=== PATIENT | female | born 1950 | race Two or more races ===

== ENCOUNTER 2023-02-13 11:24 | Inpatient (IN) | payer OTHER ==
[~2023-02-13] VITALS: Ht 162.6 cm; Wt 65.3 kg
[2023-02-14] MEDS ORDERED: SYNTHROID125 MCG PO (10:25)
[2023-02-14] MEDS ORDERED: LOSARTAN POTAS100 MG PO (10:26)
[2023-02-14] MEDS ORDERED: METFORMIN HCL750 MG PO (10:27)
[2023-02-14] MEDS ORDERED: ALENDRONATE SOD70 MG PO (10:27)
[2023-02-14] MEDS ORDERED: SIMVASTATIN10 MG PO (10:27)
[2023-02-14] MEDS ORDERED: ALDACTONE25 MG PO (10:27)
[2023-02-14] MEDS ORDERED: D3 + K2 DOTS 11 EACH PO (10:28)
[2023-02-20] MEDS ORDERED: B-122500 MCG (08:19)
[2023-02-20] MEDS ORDERED: VITAMIN D31250 MCG (08:20)
[2023-02-20] MEDS ORDERED: CALCIUM CARBON600 M1 (08:20)
[2023-02-20] MEDS ORDERED: TORSEMIDE5 MG (08:20)
[2023-02-20] MEDS ORDERED: FELODIPINE ER5 MG (08:20)
[2023-02-20] MEDS ORDERED: FOLIC ACID1 MG (08:20)
== END 2023-03-01 11:56 | disposition expired | DRG 166 ==
LOC: EDSTATUS 02-14 07:30 → ADM 02-14 07:30 → SURG 02-19 06:45 → O/R 02-19 06:45 → SURH 02-19 07:30 → SEC-K 02-19 20:38 → SURG 02-19 20:40 → ICUI 03-01 00:32 → ICU-2 03-01 00:34 → ICU 03-01 00:38
PROVIDERS: ADMIT Surgery; ATTEND Surgery
PROC: 0DBE4ZZ Excision of Large Intestine, Percutaneous Endoscopic Approach (ICD-10-PCS; 2023-02-19)
PROC: 0DBN4ZZ Excision of Sigmoid Colon, Percutaneous Endoscopic Approach (ICD-10-PCS; 2023-02-19)
PROC: 0DJD0ZZ Inspection of Lower Intestinal Tract, Open Approach (ICD-10-PCS; principal; 2023-02-19 13:45)
PROC: BT04ZZZ Plain Radiography of Kidneys, Ureters and Bladder (ICD-10-PCS; 2023-02-22)
PROC: 3E0F7GC Introduction of Other Therapeutic Substance into Respiratory Tract, Via Natural or Artificial Opening (ICD-10-PCS; 2023-02-23)
PROC: 4A12X4Z Monitoring of Cardiac Electrical Activity, External Approach (ICD-10-PCS; 2023-02-24)
PROC: BW24YZZ Computerized Tomography (CT Scan) of Chest and Abdomen using Other Contrast (ICD-10-PCS; 2023-02-25)
PROC: BW21YZZ Computerized Tomography (CT Scan) of Abdomen and Pelvis using Other Contrast (ICD-10-PCS; 2023-02-25)
PROC: 02HV33Z Insertion of Infusion Device into Superior Vena Cava, Percutaneous Approach (ICD-10-PCS; 2023-02-27)
PROC: 0DQ80ZZ Repair Small Intestine, Open Approach (ICD-10-PCS; 2023-02-28)
PROC: 0DNW0ZZ Release Peritoneum, Open Approach (ICD-10-PCS; 2023-02-28)
PROC: 0DB80ZZ Excision of Small Intestine, Open Approach (ICD-10-PCS; 2023-02-28)
PROC: 0D1B0Z4 Bypass Ileum to Cutaneous, Open Approach (ICD-10-PCS; 2023-02-28)
PROC: 0DTF0ZZ Resection of Right Large Intestine, Open Approach (ICD-10-PCS; 2023-02-28)
PROC: 0DTL0ZZ Resection of Transverse Colon, Open Approach (ICD-10-PCS; 2023-02-28)
PROC: 0DTM0ZZ Resection of Descending Colon, Open Approach (ICD-10-PCS; 2023-02-28)
PROC: BW21YZZ Computerized Tomography (CT Scan) of Abdomen and Pelvis using Other Contrast (ICD-10-PCS; 2023-02-28)
DX: J90 Pleural effusion, not elsewhere classified (principal); A41.9 Sepsis, unspecified organism; R65.21 Severe sepsis with septic shock; J95.89 Other postprocedural complications and disorders of respiratory system, not elsewhere classified; J98.11 Atelectasis; K57.20 Diverticulitis of large intestine with perforation and abscess without bleeding; K91.71 Accidental puncture and laceration of a digestive system organ or structure during a digestive system procedure; Z43.3 Encounter for attention to colostomy; D72.829 Elevated white blood cell count, unspecified; Z66 Do not resuscitate